=== PATIENT | male | born 1930 | race Caucasian/White ===

== ENCOUNTER → 2017-06-09 | Outpatient (CLI) | payer MEDICARE, BC ==
[~2017-06-09] MED LIST: ACTOS 45MG45 MG/TAB PO; AMARYL4 MG PO; ATARAX 25MG25 MG/TAB PO; FOLIC ACID 11 MG/TA1 PO; GLUCOPHAGE1000 MG PO; LIPITOR 40MG TA40 MG PO; LOTENSIN40 MG PO; METHOTREXA2.5 MG/TAB PO
[2017-06-09 13:35] LABS: BASO % 0.4 % (0.0-2.0); EOS # 0.2 (0.0-0.7); EOS % 2.1 % (0-4.0); GRAN # 5.3 (1.4-6.5); HEMATOCRIT 37.9 % (42.0-52.0); LYMPH # 1.6 (1.2-3.4); LYMPH % 19.5 % (20.0-51.0); MEAN CELL VOLUME 103 fl (80.0-100.0); MEAN CORPUSCULAR HEMOGLOBIN 33 pg (27.0-31.0); MEAN CORPUSCULAR HGB CONC 32 g/dl (33.0-37.0); MEAN PLATELET VOLUME 10.5 fl (7.4-10.4); MONO # 0.9 (0.1-0.6); MONO % 10.7 % (1.7-9.3); PLATELET COUNT 213 K/mm3 (130-400); RED BLOOD COUNT 3.69 M/mm3 (4.20-5.60); WHITE BLOOD COUNT 7.9 K/mm3 (4.8-10.8)
[2017-06-09 13:55] LABS: ERYTHROCYTE SEDIMENTATION RATE 7 mm/hr (0-30)
== END ==
LOC: COL.LAB 12:37
PROVIDERS: Orthopaedic Surgery
DX: M25.351 Other instability, right hip (principal); Z96.641 Presence of right artificial hip joint

== ENCOUNTER 2017-07-08 13:11 | Inpatient (IN) | payer MEDICARE, BC ==
[~2017-07-08] VITALS: Ht 182.9 cm; Wt 113.5 kg
[2017-08-31] VITALS (13 sets, daily range): BP systolic 103–139; BP diastolic 43–73; PULSE 48–132; TEMP 97–98.7
[2017-08-31] MEDS ORDERED: AMARYL1 MG PO (01:08)
[2017-08-31] MEDS ORDERED: FERROUSAL325 MG PO (01:09)
[2017-08-31] MEDS ORDERED: VITAMIN C500 MG PO (01:10)
[2017-08-31] MEDS ORDERED: FLOMAX 0.40.4 MG/CAP PO (01:10)
[2017-09-01 04:55] VITALS: BP 119/43; PULSE 68; TEMP 98.6
[2017-09-01 06:52] LABS: HEMATOCRIT 36.1 % (42.0-52.0); HEMOGLOBIN 11.5 g/dl (13.5-18.0)
[2017-09-01 07:08] LABS: CALCIUM 8.4 mg/dL (8.4-10.2); CREATININE, serum 1.26 mg/dL (0.66-1.25); POTASSIUM 4.7 mmol/L (3.4-5.0)
[2017-09-01 07:30] VITALS: BP 119/43; PULSE 64; TEMP 98.8
[2017-09-01 11:18] VITALS: BP 104/31; PULSE 62; TEMP 99.8
[2017-09-01 15:52] VITALS: BP 113/52; PULSE 62; TEMP 98.4
[2017-09-01 20:00] VITALS: BP 132/43; PULSE 62; TEMP 97.8
[2017-09-01 22:11] VITALS: BP 132/43; PULSE 62; TEMP 97.8
[2017-09-02 01:00] VITALS: BP 112/56; PULSE 89; TEMP 98.4
[2017-09-02 04:00] VITALS: BP 108/40; PULSE 72; TEMP 98
[2017-09-02 06:54] LABS: HEMATOCRIT 31.7 % (42.0-52.0); HEMOGLOBIN 10.3 g/dl (13.5-18.0)
[2017-09-02 08:00] VITALS: BP 117/55; PULSE 78; TEMP 98.1
[2017-09-02 12:06] VITALS: BP 114/43; PULSE 62; TEMP 97.8
[2017-09-02 15:51] VITALS: BP 111/47; PULSE 72; TEMP 99.7
[2017-09-02 19:50] VITALS: BP 121/39; PULSE 71; TEMP 98.6
[2017-09-03 00:22] VITALS: BP 126/33; PULSE 69; TEMP 98.8
[2017-09-03 03:56] VITALS: BP 140/61; PULSE 48; TEMP 98.2
[2017-09-03] MEDS ORDERED: CELEBREX 200MG200 MG PO (07:12)
[2017-09-03] MEDS ORDERED: ASPI325T6 PO (07:12)
[2017-09-03] MEDS ORDERED: NORCO 325 MG-7.1 TAB PO (07:13)
[2017-09-03] MEDS ORDERED: TYLENOL 500MG500 MG PO (07:14)
[2017-09-03] MEDS ORDERED: COLACE 100100 MG/CAP PO (07:15)
[2017-09-03 07:27] LABS: HEMOGLOBIN 10.3 g/dl (13.5-18.0)
[2017-09-03 07:41] LABS: CALCIUM 8.6 mg/dL (8.4-10.2); CREATININE, serum 1.34 mg/dL (0.66-1.25); POTASSIUM 4.3 mmol/L (3.4-5.0)
[2017-09-03 08:00] VITALS: BP 136/42; PULSE 51; TEMP 98.2
== END 2017-09-03 10:45 | disposition home or self-care (01) | DRG 468 ==
LOC: JCC 08-31 05:05
PROVIDERS: Nurse Practitioner Family; Orthopaedic Surgery; Physician Assistant
PROC: 0SR90JA Replacement of Right Hip Joint with Synthetic Substitute, Uncemented, Open Approach (ICD-10-PCS; 2017-08-31)
PROC: 0SP90JZ Removal of Synthetic Substitute from Right Hip Joint, Open Approach (ICD-10-PCS; principal; 2017-08-31 07:30)
DX: T84.020A Dislocation of internal right hip prosthesis, initial encounter (principal); Z66 Do not resuscitate; Z96.641 Presence of right artificial hip joint; I12.9 Hypertensive chronic kidney disease with stage 1 through stage 4 chronic kidney disease, or unspecified chronic kidney disease; E11.22 Type 2 diabetes mellitus with diabetic chronic kidney disease; N18.3 Chronic kidney disease, stage 3 (moderate); M06.9 Rheumatoid arthritis, unspecified
CPT/HCPCS: 99222; 99231-AI; A4314; A9284; C1776; J0690; J1815; J2250; J2370; J2405; J2704; J3010; J7030

== ENCOUNTER → 2017-08-20 | Outpatient (CLI) | payer MEDICARE, BC | LOC: COL.LAB 09:58 | DX: Z01.812 Encounter for preprocedural laboratory examination (principal) ==